=== PATIENT | female | born 1965 | race Caucasian/White ===

== ENCOUNTER → 2017-12-20 | Outpatient (CLI) | payer BC ==
[~2017-12-20] MED LIST: EFFEXOR 3737.5 MG/TA PO; K-DUR20 MEQ PO; LO LOESTRIN FE1 TAB PO; MULTI VITAMINS1 TAB PO; PHENTERMINE15 MG PO; SYNTHROID 0.0.025 MG PO; TENORETIC 50 501 TAB PO; TENORMIN 5050 MG/TAB PO
== END ==
LOC: MC.RAD 11-15 09:00
DX: Z12.31 Encounter for screening mammogram for malignant neoplasm of breast (principal)

== ENCOUNTER 2018-04-25 22:56 | Emergency (ER) | payer BC ==
[~2018-04-25] VITALS: Ht 165.1 cm; Wt 84.1 kg
[2018-04-25 23:06] VITALS: TEMP 97
[2018-04-25] MEDS ORDERED: NORVASC 5MG5 MG/TAB PO (23:12)
[2018-04-25] MEDS ORDERED: DITROPAN 5MG TAB5 MG PO (23:12)
[2018-04-25] MEDS ORDERED: XANAX .25M0.25 MG/TA PO (23:13)
[2018-04-25] MEDS ORDERED: PROZAC40 MG PO (23:13)
[2018-04-25] MEDS ORDERED: PROVERA5 MG PO (23:14)
[2018-04-25 23:31] LABS: BASO % 0.7 % (0.0-2.0); EOS # 0.1 (0.0-0.7); EOS % 1.9 % (0-4.0); GRAN # 3.4 (1.4-6.5); HEMATOCRIT 39.1 % (37.0-47.0); HEMOGLOBIN 12.2 g/dl (12.5-16.0); LYMPH # 1.7 (1.2-3.4); LYMPH % 29.5 % (20.0-51.0); MEAN CELL VOLUME 83 fl (80.0-100.0); MEAN CORPUSCULAR HEMOGLOBIN 26 pg (27.0-31.0); MEAN CORPUSCULAR HGB CONC 31 g/dl (33.0-37.0); MEAN PLATELET VOLUME 9.6 fl (7.4-10.4); MONO # 0.6 (0.1-0.6); MONO % 9.7 % (1.7-9.3); PLATELET COUNT 227 K/mm3 (130-400); REDCELL DISTRIBUTION WIDTH-CV 14.2 % (11.5-14.5)
[2018-04-25 23:42] LABS: ALBUMIN 4.2 gm/dL (3.5-5.0); BILIRUBIN,TOTAL 0.2 mg/dL (0.0-1.0); CREATININE, serum 0.66 mg/dL (0.52-1.25); POTASSIUM 3.6 mmol/L (3.4-5.0); TOTAL PROTEIN 7.6 gm/dL (6.4-8.2)
[2018-04-26 00:07] LABS: COLLECTION METHOD CLEAN CATCH
[2018-04-26 00:16] LABS: PH 7 (5-8); SQUAMOUS EPITHELIAL 0-2 /hpf; URINE APPEARANCE Clear; URINE BACTERIA Rare /hpf; URINE BILIRUBIN Negative (NEGATIVE); URINE BLOOD Negative (NEGATIVE); URINE COLOR Straw; URINE GLUCOSE Negative (NEGATIVE); URINE KETONE Negative (NEGATIVE); URINE LEUKOCYTE ESTERASE Negative (NEGATIVE); URINE NITRATE Negative (NEGATIVE); URINE PROTEIN(semi-quant) Negative (NEGATIVE); URINE RBC 0-2 /hpf; URINE UROBILINOGEN Negative (NEGATIVE)
[2018-04-26] MEDS ORDERED: NORCO 325 MG-51 TAB PO (02:12)
[2018-04-26] MEDS ORDERED: ZOFRAN ODT4 MG PO (02:12)
[2018-04-26 02:36] VITALS: BP 127/81; PULSE 80
== END 2018-04-26 02:36 | disposition home or self-care (01) ==
LOC: COL.ER 22:56
PROVIDERS: Emergency Medicine
DX: D18.09 Hemangioma of other sites (principal); I10 Essential (primary) hypertension; E03.9 Hypothyroidism, unspecified
CPT/HCPCS: J2405; J3010; J7030; Q9967

== ENCOUNTER → 2020-01-02 | Outpatient (CLI) | payer BC ==
[~2020-01-02] MED LIST changes: +DITROPAN 5MG TAB5 MG PO; +NORCO 325 MG-51 TAB PO; +NORVASC 5MG5 MG/TAB PO; +PROVERA5 MG PO; +PROZAC40 MG PO; +XANAX .25M0.25 MG/TA PO; +ZOFRAN ODT4 MG PO
== END ==
LOC: MC.RAD 07:00
DX: Z12.31 Encounter for screening mammogram for malignant neoplasm of breast (principal)

== ENCOUNTER → 2021-03-03 | Outpatient (CLI) | payer BC | LOC: MC.RAD 01-27 14:30 | DX: Z12.31 Encounter for screening mammogram for malignant neoplasm of breast (principal) ==

== ENCOUNTER → 2022-06-22 | Outpatient (CLI) | payer BC | LOC: COL.RAD 06-15 10:00 | DX: R10.11 Right upper quadrant pain (principal); R11.0 Nausea | CPT/HCPCS: A9537; J2805 ==

== ENCOUNTER → 2022-07-28 | Outpatient (CLI) | payer BC | LOC: MC.RAD 05-18 07:00 | DX: Z12.31 Encounter for screening mammogram for malignant neoplasm of breast (principal) ==